=== PATIENT | female | born 1990 ===

== ENCOUNTER 2020-03-23 20:06 | Outpatient (REF) | payer BC, SELFPAY ==
[2020-03-23 21:35] LABS: HCT 40.3 %; HGB 13.3 g/dL; Mean Corpuscular Hemoglobin 30.5 pg; Mean Corpuscular Volume 92.4 fL; Mean Platelet Volume 11.4 fL; Platelet Count 191 x1000/uL; RBC 4.36 m/cumm; RBC Distribution Width 12.8 %; White Blood Cell Count 3.98 k/cumm
[2020-03-24 00:04] LABS: ALT 28 U/L; AST 21 U/L; Albumin 3.9 g/dL; Alkaline Phosphatase 46 U/L; Anion Gap 6.7 mmol/L; BUN 17 mg/dL; Bilirubin, Total 0.3 mg/dL; CO2 29.3 mmol/L; CREATININE 0.73 mg/dL; Calcium 9.1 mg/dL; Chloride 103 mmol/L; Glucose 91 mg/dL; Potassium 4.4 mmol/L; Sodium 139 mmol/L; TSH (W/Ref FT4) 0.73 uIU/mL; Total Protein 7.3 g/dL
== END 2020-03-23 20:26 ==
LOC: NCHCN 20:06
PROVIDERS: PCP Nurse Practitioner Community Health; Visit Provider Nurse Practitioner Community Health
DX: R42 Dizziness and giddiness (principal); R12 Heartburn; Z13.29 Encounter for screening for other suspected endocrine disorder
CPT/HCPCS: 80053; 85027; 84443

== ENCOUNTER 2022-07-19 17:47 | Outpatient (REF) | payer BC, SELFPAY ==
--- NOTE | 2022-07-19 16:41 | PAPFT_PTH ---
PATIENT: Tracey Solorzano LOC: [facility]#:[id number] AGE/SX: 31/F ROOM: RE07/19/[address]: Gaye Delvalle : 1990 BED: DIS: 07/19/2022 SPEC #: [id number] RECD: 07/20/22 18:42 STATUS: JOSE ROBERTO REWesley #: [id number] VIVIAN: 07/19/22 16:[address]: Gaye Delvalle DEPT: [facility] Cytology RECD BY: Christiane Long ENTERED: 07/20/22 18:42 SP TYPE: PAPFT MAY DR: Divya Li Tissues: 1 - CX/ENDOCX FOR PAP SMEARS Procedures: PAP THIN PREP/[facility] Screening Comments:
== END 2022-07-19 17:48 | disposition home or self-care (01) ==
LOC: NCHCN 17:47
PROVIDERS: PCP Nurse Practitioner Community Health; Visit Provider Nurse Practitioner Family
DX: Z12.4 Encounter for screening for malignant neoplasm of cervix (principal)
CPT/HCPCS: 88142